=== PATIENT | male | born 1945 | race Caucasian/White ===

== ENCOUNTER 2019-08-31 15:18 | Emergency (ER) | payer MEDICARE ==
[~2019-08-31] VITALS: Ht 670.6 cm; Wt 87.1 kg
--- NOTE | 2019-08-31 15:53 | NUR ---
PT IS IN THE ROOM #1A. DR AVERY EVALUATED THE PT. PT WAS D/C'd TO HOME. D/C INSTRUCTIONS GIVEN TO THE PT. NO S/S OF DISTRESS AT THIS TIME. NO BLEEDING.
[2019-08-31 16:02] VITALS: BP 153/89
--- NOTE | 2019-08-31 16:03 | NUR ---
PT LEFT HOSPITAL AMA. ALL RISKS OF LEAVING HOSPITAL AMA WERE EXPLAIND TO THE PT BY DR AVERY. PT VERBALIZED FULL UNDERSTANDING, SIGNED AMA FORM AND LEFT THE HOSPITAL WITH HIS FAMILY MEMBER.
== END 2019-08-31 16:03 | disposition left against medical advice (07) ==
LOC: ER 15:29
DX: S01.21XA Laceration without foreign body of nose, initial encounter (principal); W01.0XXA Fall on same level from slipping, tripping and stumbling without subsequent striking against object, initial encounter; Y93.89 Activity, other specified; Y92.34 Swimming pool (public) as the place of occurrence of the external cause; E11.9 Type 2 diabetes mellitus without complications; E78.5 Hyperlipidemia, unspecified
CPT/HCPCS: A4217; A4663